=== PATIENT | male | born 1960 | race Caucasian/White ===

== ENCOUNTER 2017-07-23 08:38 | Day surgery (SDC) | payer BC ==
[~2017-07-23 08:38] MED LIST: VERSED ONE
[2017-07-23] MEDS ORDERED: NS 500 ML IV 500 ML IV ONE (08:46)
[2017-07-23] MEDS ORDERED: TETRACAINE 0.5% OPHTH 1 DOSE AFFEYE ONE ×5 (08:48→11:28)
[2017-07-23] MEDS ORDERED: VIGAMOX 0.5% OPHTH 1 DOSE AFFEYE ONE ×5 (08:50→12:03)
[2017-07-23] MEDS ORDERED: BROMDAY OPHTH 1 DOSE AFFEYE ONE (09:01)
[2017-07-23] MEDS ORDERED: ALPHAGAN-P OPHTH 1 DOSE AFFEYE ONE (09:02)
[2017-07-23] MEDS ORDERED: MYDRIACIL OPHTH 1 DOSE AFFEYE ONE ×3 (09:03→09:06)
[2017-07-23] MEDS ORDERED: CYCLOGYL 1% OPHTH 1 DOSE OP ONE ×3 (09:03→09:06)
[2017-07-23] MEDS ORDERED: AK-DILATE 2.5% OPHTH 1 DOSE OP ONE ×3 (09:03→09:06)
[2017-07-23] MEDS ORDERED: VERSED ONE (09:50)
[2017-07-23] MEDS ORDERED: AK-DILATE 10% OPHTH 1 DOSE AFFEYE ONE ×2 (11:07→11:26)
[2017-07-23] MEDS ORDERED: DUOVISC IO ONE ×2 (11:39→11:51)
[2017-07-23] MEDS ORDERED: BETADINE OPHTH SOLN 5% EACHEYE ONE (11:39)
[2017-07-23] MEDS ORDERED: XYLOCAINE-MPF 1% IJ ONE ×2 (11:39→11:51)
[2017-07-23] MEDS ORDERED: ADRENALINE CHL INJ IJ ONE ×2 (11:39→11:51)
[2017-07-23] MEDS ORDERED: BSS OPHTH (PLAIN) 500 ML with VANCOMYCIN HCL 500 MG VIAL 25 MG, ADRENALINE CHL INJ 1 MG IR ONE ×6 (11:41)
[2017-07-23] MEDS ORDERED: VISCOAT 0.5 ML IO ONE (11:58)
[2017-07-23 12:30] VITALS: BP 154/92
== END 2017-07-23 12:28 | disposition home or self-care (01) ==
LOC: SURG1 08:38
PROVIDERS: ATTEND Ophthalmology
PROC: 08RK3JZ Replacement of Left Lens with Synthetic Substitute, Percutaneous Approach (ICD-10-PCS; principal; 2017-07-23 13:30)
PROC: 08DK3ZZ Extraction of Left Lens, Percutaneous Approach (ICD-10-PCS; principal; 2017-07-23 13:30)
DX: H25.12 Age-related nuclear cataract, left eye (principal); H25.012 Cortical age-related cataract, left eye; H25.042 Posterior subcapsular polar age-related cataract, left eye; H52.222 Regular astigmatism, left eye
CPT/HCPCS: A4217; J0170; J2250; J3370

== ENCOUNTER 2017-08-20 07:37 | Day surgery (SDC) | payer BC ==
[~2017-08-20 07:37] MED LIST changes: +PROLENSA OPHTH 1 DOSE AFFEYE ONE; +TETRACAINE 0.5% OPHTH 1 DOSE AFFEYE ONE; -VERSED ONE; +VIGAMOX 0.5% OPHTH 1 DOSE AFFEYE ONE
[2017-08-20] MEDS ORDERED: ALPHAGAN-P OPHTH 1 DOSE AFFEYE ONE (07:38)
[2017-08-20] MEDS ORDERED: CYCLOGYL 1% OPHTH 1 DOSE OP ONE ×3 (07:39→07:45)
[2017-08-20] MEDS ORDERED: AK-DILATE 2.5% OPHTH 1 DOSE OP ONE ×3 (07:40→07:46)
[2017-08-20] MEDS ORDERED: MYDRIACIL OPHTH 1 DOSE AFFEYE ONE ×3 (07:41→07:47)
[2017-08-20] MEDS ORDERED: NS 500 ML IV 500 ML IV ONE (08:06)
[2017-08-20] MEDS ORDERED: VERSED ONE ×2 (08:21→15:35)
[2017-08-20] MEDS ORDERED: TETRACAINE 0.5% OPHTH 1 DOSE AFFEYE ONE ×7 (09:24→10:40)
[2017-08-20] MEDS ORDERED: VERSED IVP ONE ×3 (10:02→10:14)
[2017-08-20] MEDS ORDERED: ADRENALINE CHL INJ IJ ONE ×2 (10:27→10:40)
[2017-08-20] MEDS ORDERED: DUOVISC IO ONE ×2 (10:27→10:40)
[2017-08-20] MEDS ORDERED: BETADINE OPHTH SOLN 5% EACHEYE ONE (10:27)
[2017-08-20] MEDS ORDERED: XYLOCAINE-MPF 1% IJ ONE ×2 (10:27→10:40)
[2017-08-20] MEDS ORDERED: BSS OPHTH (PLAIN) 500 ML with VANCOMYCIN HCL 500 MG VIAL 25 MG, ADRENALINE CHL INJ 1 MG IR ONE ×6 (10:28)
[2017-08-20] MEDS ORDERED: VIGAMOX 0.5% OPHTH 1 DOSE AFFEYE ONE ×2 (10:28→10:59)
[2017-08-20 11:21] VITALS: BP 158/86
== END 2017-08-20 11:22 | disposition home or self-care (01) ==
LOC: SURG1 07:37
PROVIDERS: ATTEND Ophthalmology
PROC: 08RJ3JZ Replacement of Right Lens with Synthetic Substitute, Percutaneous Approach (ICD-10-PCS; principal; 2017-08-20 10:00)
PROC: 08DJ3ZZ Extraction of Right Lens, Percutaneous Approach (ICD-10-PCS; principal; 2017-08-20 10:00)
DX: H25.11 Age-related nuclear cataract, right eye (principal); H25.011 Cortical age-related cataract, right eye; H25.041 Posterior subcapsular polar age-related cataract, right eye; H52.221 Regular astigmatism, right eye
CPT/HCPCS: A4217; J0170; J2250; J3370